=== PATIENT | female | born 1940 | race Caucasian/White ===

== ENCOUNTER 2023-11-11 14:22 | Inpatient (IN) | payer OTHER ==
--- NOTE | 2023-11-11 18:36 | RAD REPORT ---
EXAM DESCRIPTION: Joycelyn Single View11/11/2023 6:19 pm CLINICAL HISTORY: Chest pain COMPARISON: none FINDINGS: Mild to moderate bibasilar lung opacities Upper lobes appear clear. Heart is mildly enlarged IMPRESSION: Mild to moderate bibasilar lung opacities can be seen with aspiration pneumonitis
[2023-11-11] MEDS ORDERED: ONDANSETRON 4 MG (ODT) TAB PO PRN (18:38)
[2023-11-11] MEDS ORDERED: ACETAMINOPHEN 325 MG TABLET PO PRN (18:45)
[2023-11-11] MEDS ORDERED: NITROFURAN MACRO 100 MG CAP PO SCH (20:00)
[2023-11-11] MEDS ORDERED: AMOX/K CLAV 875 MG TAB PO SCH ×2 (20:00→23:58)
[2023-11-11] MEDS: LOSARTAN POTASSIUM 50 MG TABLET PO SCH (20:00)
[2023-11-11] MEDS: APIXABAN 5 MG TABLET PO SCH (20:25)
[2023-11-11] MEDS: DOCUSATE NA 100 MG CAP PO SCH (20:25)
[2023-11-12] MEDS: METOPROLOL XL 50 MG TAB PO SCH (05:10)
[2023-11-12 08:06] LABS: Absolute Lymphocytes (CBC) 0.7 K/uL (0.7-4.9); Hematocrit 35.8 % (36.0-45.0); Lymphocytes % 11.7 % (15.3-44.8); MCV 90.1 fL (80-100); MPV 8.3 fL (7.6-11.3); Platelets 256 thou/uL (152-406); RBC Red Blood Cell Count 3.97 M/uL (3.86-4.86)
[2023-11-12 08:53] LABS: Blood Morphology Comment NOT SEEN (NOT SEEN); Platelet Estimate ADEQ; White Blood Cell Scan OK (OK)
[2023-11-12 08:59] LABS: Magnesium 1.9 mg/dL (1.6-2.4); Potassium 3.8 mEq/L (3.5-5.1)
[2023-11-12] MEDS: AMOX/K CLAV 875 MG TAB PO SCH ×2 (09:30→20:03)
[2023-11-12] MEDS: APIXABAN 5 MG TABLET PO SCH ×2 (09:30→20:03)
[2023-11-12] MEDS: DOCUSATE NA 100 MG CAP PO SCH ×2 (09:30→20:03)
[2023-11-12] MEDS: NITROFURAN MACRO 100 MG CAP PO SCH ×2 (09:31→20:03)
[2023-11-12] MEDS: BISACODYL E.C. 5 MG TAB PO PRN (09:31)
[2023-11-12] MEDS: AMLODIPINE 5 MG TAB PO SCH (09:36)
[2023-11-12] MEDS: LOSARTAN POTASSIUM 50 MG TABLET PO SCH ×2 (09:36→20:03)
[2023-11-12] MEDS: SODIUM CHLORIDE 1 GM TAB PO SCH (17:17)
[2023-11-12 18:38] LABS: T3 Free 1.71 pg/mL (2.18-3.98); T4,Total 11.5 ug/dL (4.8-13.9); Thyroid Stimulating Hormone 1.66 uIU/mL (0.358-3.740)
--- NOTE | 2023-11-12 21:27 | HP ---
Date of Admission: 11/11/2023 Time Of Service: 1:00 p.m. Chief Complaint: She actually has decreased verbal expression and the daughter noted she fell and bl ed in her head. Her daughter is at the bedside. History Of Present Illness: Ms. Osman is an -auru-nss patient with history of atrial fibri llation, on Eliquis; hypertension with episodes of hyponatremia, was on salt replacement when on Dece mb, she apparently bent forward and fell and impacted her head. The daughter thought that the reconstruction of the event was that she hit the back of her head and had a Coupe contrecoup effect w here the bleeding was on the left frontal region. In the event, she had a large hematoma in the left frontal region. She was seen at [facility] and discharged to [facility] on October 14. However, on , while at [facility], she was found with vomitus on her chest, confuse d, hypoxic. She was brought to [facility] and transferred to [facility] where she was found to meet criteria for sepsis with elevated lactic acid, leukocytosis, an d fever. She was felt to have aspiration pneumonia as the etiology following the subarachnoid sort o f subdural hematoma, likely the etiology of her dysphagia leading to the pneumonia. She had a CT sca n showing the large hematoma with vasogenic edema, but this finding was stable. Chest x-ray showed b ilateral small pleural effusions and adjacent atelectasis. Urinalysis also positive for urinary trac t infection. In addition, she has hypokalemia, hyponatremia, hypocalcemia, hypomagnesemia. She had elevated troponins and EKG showing no acute ischemic changes. Hemoglobin was low to 7.2. INR elevat ed to 0.51. She received IV antibiotics along with IV fluids and sodium replacement. She had oxygen supplementation due to decreased oxygen saturation. Speech consult was done and the patient was put on advanced to a clear liquid regular diet. However, the patient's daughter is at bedside. Did sonia campos that she had aspirated once before and appeared to be choking while eating and patient was put o n a thick pureed diet with thickened liquids. In addition, since the subdural hematoma, the patient has not been able to void or have urine voluntarily. Has had some issues with stool production and s he has had a chronic Esteves put in place. She did have bladder training attempted and after 6 hours o f clamping, the patient did not feel the need to void and when the Esteves was opened, she had 2.2 L of urine. After another clamping within 30 minutes, another 600 cc was removed. It is likely the иван ent's frontal subdural hematoma on the left impacted and micturition center, making it difficult for her to receive the sensation of urination. Patient's Esteves will be kept in place. In addition, the patient's daughter was instructed to receive the most recent head CT scans on disk and bring them for a new CT to be done of the head for comparison to determine if the hematoma is stable or has changed . In addition, she needs hemoglobin and hematocrit followed white blood cell count followed. We randal l have thyroid panel, liver function panel, and basic metabolic panel followed. As a result of her s ignificant decline in functioning, she was evaluated by Physical and Occupational Therapy and it was determined that she needed moderate assistance for transfers and mobilization and performing activiti es of daily living and this is well below her normal level of functioning. Prior to October 20, she was fully independent and ambulating without any assistive device. She is therefore admitted to the inpatient rehabilitation unit for physical, occupational, speech therapy, and for management of her m ultiple comorbid conditions which do require close attending including the frontal subdural hematoma that needs to be re-evaluated. Past Medical History: As noted above including hypertension; atrial fibrillation, on Eliquis; chroni c hyponatremia. Daughter also notes that she has reported clots in the veins in the upper extremitie s returning to her heart and that is partly why she is on full anticoagulation with Eliquis. She als o notes that she was told that her mother's blood pressure should be kept around 140/90 to allow for perfusion given the partial blockages of the multiple vessels towards the CAD. X-ray/imaging: She had a chest x-ray on November 07 showing stable enlarged cardiomediastinal silh ouette, calcification in the aortic knob, persistent bilateral retrocardiac opacities. There was inc reased atelectatic changes in the right lower lung with possible superimposed consolidation and small bilateral pleural effusions. CT scan on November 06, 2023, showed no interval adverse change compar ed to an immediate prior noncontrast head CT scan. There is stable subacute hematoma in the left fro ntal lobe with surrounding vasogenic edema. There and is in the left frontal lobe. CT scan prior to the one read above showed the same finding. There was a slight decrease in the size of the central hyperdense component. The initial reading was 8 mm and ended with [address] scan on 11/06 show ed atelectasis bilateral lower lung zones with small pleural effusions. Allergies: NO KNOWN DRUG ALLERGIES. Current Medications: Tylenol 650 mg every 4 hours as needed, Norvasc 5 mg daily, Augmentin twice cecille ly, Eliquis 5 mg twice daily, Dulcolax 5 mg daily, Colace 100 mg twice daily, Cozaar 50 mg twice supriya y, Toprol-XL 50 mg daily, Macrobid 100 mg twice daily, Zofran 4 mg every 6 hours as needed, and sodiu m chloride tablets 1 g twice daily. Family History: Noncontributory. Review of Systems: Ms. Osman has some difficulty with expression, difficulty with articulation, mild diffuse weakness, a nd somnolence. She has no fevers or chills. No myalgias, arthralgias. She is unable to sense any f ullness of her bladder. She has no rash, no active psychiatric issues. She has stool retention as w ell. Current Level Of Functioning: Supervision for eating, oral hygiene; dependent for toilet hygiene; ma ximum assistance for bathing, upper body dressing and lower body dressing; maximum assistance for don silverio footwear; moderate assist for rolling right to left, [id number]; moderate assistance for sit- to-stand; and transferring from bed to chair to toilet all maximum assistance. Ambulation, she has n ot stood up and ambulated. It is noted that the daughter said she has had some issues moving the lef t leg and she has had a left hip fracture and has had intramedullary mesfin fixation and has had some is sues moving the left leg, which is a potential reason for falling. Rehabilitation And Medical Assessment And Plan: Ms. Osman is an 83-year-old patient in the [facility] emergency department unit with impairment category 02. Brain dysfunction, traumatic. Her impairment group code is 02.22 traumatic closed injury. Etiologic diagnosis is left frontal subdural hematoma. Additional co morbidities are the respiratory failure, atrial fibrillation, anemia, decreased mobility, decreased p hysical functions, dysphagia, dysarthria, hypertension, hyponatremia, hypoxia, pneumonia, sepsis, wea kness, cystitis, and she has had left hip pain. Please note on her examination, the left lower extre mity had some increased stiffness compared to the right with increased tone and she had mild difficul ty with plantar flexion, but she has poor hearing and the difficulty with comprehension and expressio n. Based on the location of her stroke, which may be contributing factors. Plan: 1.She will have physical, occupational, and speech therapy for 3.5 hours, 5/7 days. We will do thyr oid function study, TSH with T3, T4, and free T3, T4. Will have the sodium 1 g twice daily. We will continue with the antibiotics, Macrobid and Augmentin. We will continue Eliquis 5 mg twice daily fo r atrial fibrillation. Continue with Norvasc and Toprol with hold parameters of holding if systolic blood pressure is less than 140. We will give Dulcolax for stool retention and constipation. 2.We will keep the Esteves in place and she likely has central urinary retention from the location and size of her stroke. 3.We will repeat CT scan of her head to compare with CT scan from outside to determine if there is a change in the patient's subdural hematoma size and edema around the hematoma. 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 Speech will work with her with that. She has also high aspiration risk . She has poor guttural sounds and poor sounds made very back of the throat indicating some difficul ty with coordination, putting her at risk of pneumonia, which she already has had apparently multiple times. We will repeat chest x-ray to determine if there is any worsening pneumonia. Rehab Specific Plan: Ms. Osman has physical, occupational, and speech therapy for 3.5 hours, 5/7 day s to improve her speech, her cognition, her comprehension, her swallowing and protecting her airway. Her ability to mobilize from bed to chair to wheelchair ability to ambulate household distances, go up and down steps, to on and off the toilet, to perform a shower and dressing and all activities of d aily living. Ms. Osman and her family have a good understanding of the process of admission to the inpatient rehab ilitation facility and she and her family can appreciate the benefits of her therapy. Given her comp enrique medical condition and risk of further complications, rehabilitation cannot be safely or affective ly performed at a lower level facility such as intermediate. Barriers To Discharge: Currently, she has a significant hematoma and she is on Eliquis 5 mg twice da dagoberto because of the clots in the upper extremity veins. The patient may have repeat Doppler studies. She may need to be on this long-term and she could be at risk of worsening hemorrhage in the brain g iven the Eliquis and the bleeding that is already present. Length Of Stay: About 2 weeks. Disposition: Home with family. Prognosis: Fair. Rehab Goals: 1.Become independent with upper and lower body dressing, toileting, showering, donning and doffing s hoes. 2.Independently ambulate 250 feet with a rolling walker. 3.Independently propel a wheelchair 250 feet. 4.Independently go up and down 10 steps with bilateral handrails. 5.Independently perform cognitive function. 6.Independently protect her airway and advance diet regular with thin liquids. 7.The above goals were reviewed with the patient and her family and they are in agreement. By signing this document, I acknowledge I personally performed a full physical examination on Ms. Thomas er no later than 24 hours after her admission to the inpatient rehabilitation facility and determined that she is able to tolerate the above course of treatment at an intensive level for reasonable davon od of time. A detailed individualized plan of care for her will be completed by hospital day 4 based on the preadmission screen, history and physical, and therapy evaluations. JAYY Voice ID: [id number]
[2023-11-13] MEDS: METOPROLOL XL 50 MG TAB PO SCH (05:13)
[2023-11-13] MEDS: AMLODIPINE 5 MG TAB PO SCH (08:00)
[2023-11-13] MEDS: LOSARTAN POTASSIUM 50 MG TABLET PO SCH ×2 (08:00→19:30)
[2023-11-13] MEDS: APIXABAN 5 MG TABLET PO SCH ×2 (08:59→19:30)
[2023-11-13] MEDS: DOCUSATE NA 100 MG CAP PO SCH ×2 (08:59→19:29)
[2023-11-13] MEDS: NITROFURAN MACRO 100 MG CAP PO SCH ×2 (08:59→19:29)
[2023-11-13] MEDS: SODIUM CHLORIDE 1 GM TAB PO SCH ×2 (08:59→17:01)
[2023-11-13] MEDS: AMOX/K CLAV 875 MG TAB PO SCH ×2 (08:59→19:29)
[2023-11-13] MEDS: GUAIFENESIN 600 MG SA TAB PO SCH ×2 (11:32→19:29)
[2023-11-13] MEDS: ENSURE HIGH PROTEIN 237 ML CAN PO SCH (17:02)
[2023-11-13] MEDS ORDERED: ENSURE HIGH PROTEIN 237 ML CAN PO SCH (20:00)
[2023-11-14] MEDS: METOPROLOL XL 50 MG TAB PO SCH (05:21)
[2023-11-14] MEDS: LEVOTHYROXINE SOD 0.025 MG TAB PO SCH (05:21)
[2023-11-14] MEDS: ENSURE HIGH PROTEIN 237 ML CAN PO SCH ×2 (08:00→11:55)
[2023-11-14] MEDS: NITROFURAN MACRO 100 MG CAP PO SCH ×2 (08:19→20:24)
[2023-11-14] MEDS: APIXABAN 5 MG TABLET PO SCH ×2 (08:19→20:24)
[2023-11-14] MEDS: AMOX/K CLAV 875 MG TAB PO SCH ×2 (08:19→20:24)
[2023-11-14] MEDS: SODIUM CHLORIDE 1 GM TAB PO SCH ×2 (08:20→16:31)
[2023-11-14] MEDS: AMLODIPINE 5 MG TAB PO SCH (08:20)
[2023-11-14] MEDS: DOCUSATE NA 100 MG CAP PO SCH ×2 (08:20→20:24)
[2023-11-14] MEDS: LOSARTAN POTASSIUM 50 MG TABLET PO SCH ×2 (08:21→20:00)
[2023-11-14] MEDS: GUAIFENESIN 600 MG SA TAB PO SCH ×2 (08:21→20:24)
[2023-11-14 14:44] VITALS: BMI 20.3
[2023-11-14] MEDS: ENSURE ENLIVE 237 ML CAN PO SCH (20:24)
[2023-11-14] MEDS: JUVEN PACKET PO SCH (20:25)
--- NOTE | 2023-11-14 21:19 | PN ---
Date of Progress Note: 11/14/2023 Glak-js-ylly progress note visit. Time Of Service: 1:15 p.m. Subjective: Ms. Osman is resting comfortably in her room. Still has slow speech production from the significant left frontal subarachnoid traumatic hemorrhage. Otherwise, she denies any new complaint s on subjective. Objective: No fevers or chills. No nausea or vomiting. No significant myalgias, arthralgias, rash, psychiatric complaints or gastrointestinal complaints. Physical Examination: Vital Signs: Blood pressure 125/85, pulse ranged from 71-99, respiratory rate 16, temperature 97.3, and oxygen saturation 96%. General: Ms. Osman is resting comfortably. She has no obvious focal deficits despite her subarachno id hemorrhage. She does have difficulty with labial, lingual and guttural sounds and some decreased verbal fluency. Lungs: Good air movement. Abdomen: Soft. Extremities: No significant edema, cyanosis or clubbing. Laboratory Studies: White blood cell count 6.0, hemoglobin 11.9, platelets 256. Sodium 134, potassi um 3.8, chloride 97, BUN 21, calcium 9.2, prealbumin 18. She did have a slight decrease in free T3 a nd slightly elevated free T4. Medications: She is on Synthroid, now the smallest dose and that is 0.025 mg daily. Additional Medications: Tylenol 650 every 4 hours as needed for pain, Norvasc 5 mg daily for hyperte nsion, which may be held if her blood pressures are lower than 140. Eliquis 5 mg twice daily for DVT risk reduction and stroke risk reduction. Dulcolax 5 mg daily, Colace 100 mg twice daily, guaifenes in 600 mg twice daily, Sebastien 1 packet twice daily, Cozaar 50 mg twice daily, metoprolol 50 mg daily, Macrobid 100 mg twice daily, Zofran 4 mg every 6 hours as needed, sodium chloride 1 g twice daily. S he has preparation H for hemorrhoids. Progress Made With Physical Occupational And Speech Therapy: Patient completed ambulation with a [employer] walker covering 150 feet with contact guard assistance and another 75 feet with minimum assistan ce as she got tired. She propelled a wheelchair 100 feet twice with contact guard assistance. Stand and sit transfers done with minimum assistance. With occupational therapy, toileting with minimum a ssist, upper body dressing with supervision; lower body dressing, minimum assistance. Required minim um assistance with truncal upright position for supine to sit transfer. With speech therapy demonstr ated temporal orientation skills with 100% accuracy, but could not demonstrate spatial orientation sk ills. She named 3 items per concrete category with maximum verbal cues. She sustained attention for 1 minute. She had confabulation throughout the therapy session. Ms. Osman is making fair progress with her physical, occupational and speech therapy. Assessments And Plan: Ms. Osman is an 83-year-old patient in the rehabilitation unit with a large le ft frontal traumatic subdural hematoma. She has atrial fibrillation, decreased mobility, decreased p hysical functioning, anemia, hyponatremia, recent pneumonia, sepsis, cystitis. She is making fair ov erall progress with physical, occupational, and speech therapy. Plan: 1.Continue with physical, occupational and speech therapy for 3.5 hours, 5 out of 7 days. 2.Continue low-dose Synthroid. 3.1 g sodium twice daily. 4.Continue Macrobid and Augmentin for urinary tract infection. 5.Continue Eliquis 5 mg twice daily for stroke risk reduction due to atrial fibrillation. 6.Toprol and Norvasc for high blood pressure. Hold if systolic is less than 140. 7.Dulcolax with stool softeners. 8.She has urinary retention, likely centrally mediated and so Esteves will be kept in place. 9.CT scan will be done once the patient's daughter is able to obtain the most recent brain imaging f rom outside to be compared to a study done in-house. Comorbids That Continue To Impact Rehabilitation: Currently, the expressive aphasia with her stroke is making it somewhat difficult to communicate very effectively, but she is doing as good as possible . Comorbidities as noted included her having high risk of stroke and she is on Eliquis. Also, she h as a recent bleed, which while on Eliquis may worsen, so a CT scan of the head will be done again for comparison once the prior study is available and that is the imaging. JACKIE/JANETH Voice ID: [id number] Report ID: [id number]
[2023-11-15] MEDS: LEVOTHYROXINE SOD 0.025 MG TAB PO SCH (05:25)
[2023-11-15] MEDS: METOPROLOL XL 50 MG TAB PO SCH (05:25)
[2023-11-15] MEDS: NITROFURAN MACRO 100 MG CAP PO SCH ×2 (07:01→19:43)
[2023-11-15] MEDS: GUAIFENESIN 600 MG SA TAB PO SCH ×2 (07:01→19:43)
[2023-11-15] MEDS: DOCUSATE NA 100 MG CAP PO SCH ×2 (07:01→19:43)
[2023-11-15] MEDS: APIXABAN 5 MG TABLET PO SCH ×2 (07:01→19:43)
[2023-11-15] MEDS: SODIUM CHLORIDE 1 GM TAB PO SCH ×2 (07:01→17:34)
[2023-11-15] MEDS: LOSARTAN POTASSIUM 50 MG TABLET PO SCH ×3 (07:08→19:44)
[2023-11-15] MEDS: AMLODIPINE 5 MG TAB PO SCH ×2 (08:00→14:15)
[2023-11-15] MEDS: JUVEN PACKET PO SCH ×2 (08:29→19:43)
[2023-11-15] MEDS: ENSURE ENLIVE 237 ML CAN PO SCH ×2 (08:29→19:43)
[2023-11-15] MEDS: BISACODYL E.C. 5 MG TAB PO PRN (19:43)
[2023-11-15] MEDS: FORMULATION-R RECTAL 57GM PR PRN (19:44)
[2023-11-16 03:43] LABS: Absolute Lymphocytes (CBC) 0.8 K/uL (0.7-4.9); Hematocrit 31.3 % (36.0-45.0); MCV 90.8 fL (80-100); MPV 8.1 fL (7.6-11.3); Platelets 330 thou/uL (152-406); RBC Red Blood Cell Count 3.45 M/uL (3.86-4.86)
[2023-11-16 04:05] LABS: Albumin 2.8 g/dL (3.4-5.0); Magnesium 2.1 mg/dL (1.6-2.4); Potassium 4.7 mEq/L (3.5-5.1); Prealbumin 17.2 mg/dL (20-40)
[2023-11-16] MEDS: METOPROLOL XL 50 MG TAB PO SCH (04:17)
[2023-11-16 05:29] LABS: Blood Morphology Comment NOTED (NOT SEEN); Platelet Estimate ADEQ; Polychromasia 2+
[2023-11-16] MEDS: LEVOTHYROXINE SOD 0.025 MG TAB PO SCH (05:29)
[2023-11-16] MEDS: LOSARTAN POTASSIUM 50 MG TABLET PO SCH ×2 (08:00→19:54)
[2023-11-16] MEDS: AMLODIPINE 5 MG TAB PO SCH (08:00)
[2023-11-16] MEDS: GUAIFENESIN 600 MG SA TAB PO SCH ×2 (08:40→19:54)
[2023-11-16] MEDS: DOCUSATE NA 100 MG CAP PO SCH ×2 (08:40→19:54)
[2023-11-16] MEDS: PSYLLIUM 1 PKT PO SCH (08:40)
[2023-11-16] MEDS: SODIUM CHLORIDE 1 GM TAB PO SCH ×2 (08:40→17:16)
[2023-11-16] MEDS: NITROFURAN MACRO 100 MG CAP PO SCH ×2 (08:40→19:54)
[2023-11-16] MEDS: APIXABAN 5 MG TABLET PO SCH ×2 (08:41→19:54)
[2023-11-16] MEDS: ENSURE ENLIVE 237 ML CAN PO SCH ×2 (08:41→19:54)
[2023-11-16] MEDS: JUVEN PACKET PO SCH ×2 (08:41→19:54)
[2023-11-16] MEDS ORDERED: BISACODYL 10 MG RECTAL SUPP PR PRN (19:53)
[2023-11-16] MEDS: FORMULATION-R RECTAL 57GM PR PRN (19:54)
[2023-11-16] MEDS: BISACODYL E.C. 5 MG TAB PO PRN (19:54)
--- NOTE | 2023-11-16 22:43 | PN ---
Date of Progress Note: 11/16/2023 Time Of Service: 1:10 p.m. Subjective: Ms. Osman is sitting in the room waiting for the next therapy session. She is doing wel l. Her rate of speech production has improved. She denies any significant pain such as headache or pain in her neck or any other area after of course her fall with a subdural hematoma. Review of Systems: No fevers, chills, nausea, vomiting, myalgias, arthralgias, rash. No gastrointestinal issues. No ge nitourinary issues. Physical Examination: Vital Signs: Blood pressure 126/89, pulse up to 97, respiratory rate 17, temperature 97.4, oxygen sa turation 97%. General: Again, Ms. Osman is resting comfortably in a chair beside the bed. HEENT: She is normocephalic, atraumatic. Sclerae anicteric. Oropharynx pink, moist. Neck: Supple. Chest: Clear. Heart: Regular. Extremities: Show no significant clubbing, cyanosis, or edema. She despite her left frontal subdura l has no obvious focal deficits. Laboratory Studies: White blood cell count 6.6, hemoglobin 10.4, platelets 330. Sodium is down to 1 32, potassium 4.7, chloride 101, carbon dioxide 28, BUN 35, creatinine 0.64, glucose 99, calcium 8.6, magnesium 2.1, albumin 2.8, prealbumin 17.2. Note, we will adjust the sodium from 1 g twice daily t o 2 twice daily. Medications: Tylenol 650 mg twice daily, sodium chloride 2 g twice daily, Eliquis 5 mg twice daily, Norvasc 5 mg daily, Colace 100 mg twice daily, Ensure Enlive 237 mL twice daily, guaifenesin 600 mg t wice daily, Sebastien 1 packet twice daily, levothyroxine 0.025 mg daily, losartan 50 mg twice daily, met oprolol 50 mg daily, nitrofurantoin 100 mg twice daily, Zofran 4 mg every 6 hours as needed, Metamuci l 1 packet daily. X-ray/imaging: No new x-rays or imaging. Progress Made With Physical And Occupational Therapy: Today with physical therapy, she did multiple [id number]-eu-xomsw transfers with contact guard assistance. She ambulated feet twice and 75 fee t once with a rolling walker with contact guard assistance. She mobilized the wheelchair 250 feet, a nother 50 feet with verbal cues and supervision. With occupational therapy, completed [id number]-[id number]-ett with standby assistance, requiring extra time. Bathing, minimum assistance. Upper body dressing, se tup assistance. Lower body dressing, minimum assistance. Donning and doffing footwear, minimum assi stance. With speech therapy, she was 100% oriented to temporal concepts and 0% oriented to spatial c oncepts. Sustained attention was maintained for approximately 30 seconds. Organizational thinking skills were utilized to name convergently with an average of 2 of 5 items per concrete category. She exhibited empty speech for separation, confabulation and is easily distracte d. Ms. Osman is making much better progress with physical and occupational therapy and now with speech t herapy. She of course has a left frontal subdural hematoma, making it difficult for her to express h erself properly and able to be on target when she speaks. She is however still making progress with her physical therapy. Assessment: Ms. Osman is an 83-year-old patient in the rehabilitation unit with a left frontal traum atic subdural hematoma. She has atrial fibrillation. She is on anticoagulation for that of course _ bleeding and will have an interval CT scan once the patient's daughter is able to acquire t he recent imaging from [facility]. She has decreased physical functioning, decreased mobility, expressive aphasia, hyponatremia, pneumonia, sepsis, cystitis. Plan: 1.Continue with physical, occupational, and speech therapy for 3-1/2 hours, 5 out of 7 days. 2.Her multiple comorbid medications are as noted above and will be continued. 3.She will have a repeat CT scan without contrast once her most recent imaging is available. Comorbidities That Continue To Impact Rehabilitation: Currently, the aphasia because of the location of her stroke is her biggest issue. Physically, she is actually doing well with mobilization, transfers, and beginning to ambulate well. LB/MODL Voice ID: [id number] Report ID: [id number]
[2023-11-17] MEDS: METOPROLOL XL 50 MG TAB PO SCH (05:06)
[2023-11-17] MEDS: LEVOTHYROXINE SOD 0.025 MG TAB PO SCH (05:07)
[2023-11-17] MEDS: PSYLLIUM 1 PKT PO SCH (07:42)
[2023-11-17] MEDS: SODIUM CHLORIDE 1 GM TAB PO SCH ×2 (07:43→17:29)
[2023-11-17] MEDS: NITROFURAN MACRO 100 MG CAP PO SCH ×2 (07:43→19:33)
[2023-11-17] MEDS: DOCUSATE NA 100 MG CAP PO SCH ×2 (07:43→19:31)
[2023-11-17] MEDS: APIXABAN 5 MG TABLET PO SCH ×2 (07:43→19:32)
[2023-11-17] MEDS: GUAIFENESIN 600 MG SA TAB PO SCH ×2 (07:43→19:33)
[2023-11-17] MEDS: LOSARTAN POTASSIUM 50 MG TABLET PO SCH ×2 (07:44→19:32)
[2023-11-17] MEDS: AMLODIPINE 5 MG TAB PO SCH (08:00)
[2023-11-17] MEDS: JUVEN PACKET PO SCH ×2 (09:37→19:33)
[2023-11-17] MEDS: ENSURE ENLIVE 237 ML CAN PO SCH ×2 (09:37→19:32)
--- NOTE | 2023-11-17 13:21 | P.RH.PN ---
Estimated Length of Stay: 16 Expected Discharge Date: 11/26/23 Discharge Disposition Plan: Home Family Support: Yes Prison Goal: Mobility, Transfers, Self Care Vital Signs: Last Vital Signs Temp 96.6 F L 11/17/23 08:00 Pulse 54 11/17/23 08:00 Resp 12 11/17/23 08:00 BP 128/81 11/17/23 08:00 Pulse Ox 95 11/17/23 08:00 Laboratory: Laboratory Last Values WBC 6.60 thou/uL (4.3-10.9) 11/16/23 03:05 RBC 3.45 M/uL (3.86-4.86) L 11/16/23 03:05 Hgb 10.4 g/dL (12.0-15.0) L 11/16/23 03:05 Hct 31.3 % (36.0-45.0) L 11/16/23 03:05 MCV 90.8 fL (80-100) 11/16/23 03:05 MCH 30.3 pg (27.0-35.0) 11/16/23 03:05 MCHC 33.4 g/dL (32.0-36.0) 11/16/23 03:05 RDW 16.5 % (12.1-15.2) H 11/16/23 03:05 Plt Count 330 thou/uL (152-406) 11/16/23 03:05 MPV 8.1 fL (7.6-11.3) 11/16/23 03:05 Neutrophils % 74.4 % (41.7-73.7) H 11/16/23 03:05 Lymphocytes % 12.0 % (15.3-44.8) L 11/16/23 03:05 Monocytes % 11.2 % (3.3-12.3) 11/16/23 03:05 Eosinophils % 1.9 % (0-4.4) 11/16/23 03:05 Basophils % 0.5 % (0-1.3) 11/16/23 03:05 Absolute Neutrophils 4.9 K/uL (1.8-8.0) 11/16/23 03:05 Segmented Neutrophils 71 % (40-80) 11/16/23 03:05 Band Neutrophils 4 % (0-1) H 11/16/23 03:05 Absolute Lymphocytes 0.8 K/uL (0.7-4.9) 11/16/23 03:05 Lymphocytes 12 % (15-42) L 11/16/23 03:05 Monocytes 10 % (0-10) 11/16/23 03:05 Absolute Monocytes 0.7 K/uL (0.1-1.3) 11/16/23 03:05 Eosinophils 1 % (0-3) 11/16/23 03:05 Absolute Eosinophils 0.1 K/uL (0-0.5) 11/16/23 03:05 Absolute Basophils 0.0 K/uL (0-0.5) 11/16/23 03:05 Reactive Lymphocytes 2 % 11/16/23 03:05 Platelet Estimate Adeq 11/16/23 03:05 Polychromasia 2+ 11/16/23 03:05 Morphology Comment Noted (NOT SEEN) 11/16/23 03:05 Sodium 132 mEq/L (136-145) L 11/16/23 03:05 Potassium 4.7 mEq/L (3.5-5.1) 11/16/23 03:05 Chloride 101 mEq/L (98-107) 11/16/23 03:05 Carbon Dioxide 28 mEq/L (21-32) 11/16/23 03:05 Anion Gap 7.7 mEq/L (5.0-15.0) 11/16/23 03:05 BUN 35 mg/dL (7-18) H 11/16/23 03:05 Creatinine 0.64 mg/dL (0.55-1.02) 11/16/23 03:05 Est GFR (CKD-EPI) 88 ml/min (=/>90) L 11/16/23 03:05 Glucose 99 mg/dL (74-106) 11/16/23 03:05 Calcium 8.6 mg/dL (8.5-10.1) 11/16/23 03:05 Magnesium 2.1 mg/dL (1.6-2.4) 11/16/23 03:05 Albumin 2.8 g/dL (3.4-5.0) L 11/16/23 03:05 Prealbumin 17.2 mg/dL (20-40) L 11/16/23 03:05 TSH 1.660 uIU/mL (0.358-3.740) 12/31/23 17:22 Free T4 1.47 ng/dL (0.76-1.46) H 11/12/23 17:22 Thyroxine (T4) 11.5 ug/dL (4.8-13.9) 11/12/23 17:22 Free T3 pg/mL 1.71 pg/mL (2.18-3.98) L 11/12/23 17:22 Total T3 0.80 ng/mL (0.80-2.00) 11/12/23 17:22 SARS-CoV-2 Rap RNA(RT-PCR) Negative (NEGATIVE) 11/11/23 16:45 Smear Scan Ok (OK) 11/12/23 07:37 Weight: 130 lb Wound Present: Yes Closed Surgical Incision Present: No Negative Pressure Wound Therapy Present: No Physician Update: Labs reviewed and are stable. She is making good progress overall with therapy. However, she is still mild to moderately cognitivele impaired and would require 24/ supervision. SLUMS 7, BIMS 11. CGA for bed mobility, min assistance for transfers. RW 125' with CGA, WC 250', toilet transfers min assistance. Summary: Patient's care plan and director long term care goals have been reviewed and revised as necessary. Please see the Rehabilitation Signature page for all necessary signatures.
--- NOTE | 2023-11-17 16:04 | RAD REPORT ---
EXAM DESCRIPTION: CT - Head Brain Wo Cont - 11/17/2023 3:28 pm CLINICAL HISTORY: Alteration of awareness/confusion COMPARISON: None TECHNIQUE: Computed axial tomography of the head was obtained. IV contrast was not requested. All CT scans are performed using dose optimization technique as appropriate and may include automated exposure control or mA/KV adjustment according to patient size. FINDINGS: 3.2 x 4 x 2.6 centimeter (craniocaudal by AP by trans) bleed left frontal lobe. On the ewelina or exam it measured 3.8 x 4.8 x 3.2 centimeters. There is less surrounding edema. Shift of the midlin e structures is not present. Some compression left frontal horn lateral ventricle. No hydrocephalus No extra-axial fluid collection is noted. Fluid within the sinuses/ mastoids is not seen. IMPRESSION: 3.2 x 4 x 2.6 centimeters subacute left frontal lobe bleed has decreased in size. There is less mass effect and no shift of the midline structures
[2023-11-17] MEDS: BISACODYL E.C. 5 MG TAB PO PRN (19:34)
[2023-11-18] MEDS: LEVOTHYROXINE SOD 0.025 MG TAB PO SCH ×2 (05:22→06:30)
[2023-11-18] MEDS: METOPROLOL XL 50 MG TAB PO SCH ×2 (05:23→05:49)
[2023-11-18] MEDS: AMLODIPINE 5 MG TAB PO SCH (08:00)
[2023-11-18] MEDS: LOSARTAN POTASSIUM 50 MG TABLET PO SCH ×2 (08:00→19:40)
[2023-11-18] MEDS: APIXABAN 5 MG TABLET PO SCH ×2 (08:12→19:40)
[2023-11-18] MEDS: PSYLLIUM 1 PKT PO SCH (08:12)
[2023-11-18] MEDS: GUAIFENESIN 600 MG SA TAB PO SCH ×2 (08:12→19:40)
[2023-11-18] MEDS: SODIUM CHLORIDE 1 GM TAB PO SCH ×2 (08:12→17:18)
[2023-11-18] MEDS: NITROFURAN MACRO 100 MG CAP PO SCH (08:12)
[2023-11-18] MEDS: DOCUSATE NA 100 MG CAP PO SCH ×2 (08:12→19:40)
[2023-11-18] MEDS: JUVEN PACKET PO SCH ×2 (09:42→19:40)
[2023-11-18] MEDS: ENSURE ENLIVE 237 ML CAN PO SCH ×2 (09:42→17:18)
[2023-11-19] MEDS: METOPROLOL XL 50 MG TAB PO SCH (04:53)
[2023-11-19] MEDS: LEVOTHYROXINE SOD 0.025 MG TAB PO SCH (05:35)
[2023-11-19] MEDS: LOSARTAN POTASSIUM 50 MG TABLET PO SCH ×2 (08:00→20:03)
[2023-11-19] MEDS: AMLODIPINE 5 MG TAB PO SCH (08:00)
[2023-11-19] MEDS: PSYLLIUM 1 PKT PO SCH (08:10)
[2023-11-19] MEDS: GUAIFENESIN 600 MG SA TAB PO SCH ×2 (08:10→20:03)
[2023-11-19] MEDS: DOCUSATE NA 100 MG CAP PO SCH ×2 (08:10→20:03)
[2023-11-19] MEDS: SODIUM CHLORIDE 1 GM TAB PO SCH ×2 (08:10→16:30)
[2023-11-19] MEDS: APIXABAN 5 MG TABLET PO SCH ×2 (08:10→20:03)
[2023-11-19] MEDS: ENSURE ENLIVE 237 ML CAN PO SCH ×3 (08:25→16:31)
[2023-11-19] MEDS: JUVEN PACKET PO SCH ×2 (11:25→20:03)
[2023-11-19] MEDS: NYSTATIN 500,000 UNIT/5 ML UDC PO SCH (20:05)
[2023-11-19 20:28] LABS: Specific Gravity 1.015 (1.005-1.030); Urine Bacteria <20 /HPF (<20); Urine Bilirubin NEGATIVE (Negative); Urine Blood 1+ (Negative); Urine Clarity Clear (Clear); Urine Color Light-Yellow (Yellow); Urine Glucose NEGATIVE (Negative); Urine Mucus Slight /HPF (None Seen); Urine Protein NEGATIVE (Negative); Urine RBC 21-50 /HPF (None Seen); Urine Urobilinogen Normal (Normal); Urine pH 5.5 (5.0-7.0)
[2023-11-20] MEDS: METOPROLOL XL 50 MG TAB PO SCH (05:05)
[2023-11-20] MEDS: LEVOTHYROXINE SOD 0.025 MG TAB PO SCH (05:23)
[2023-11-20] MEDS: LOSARTAN POTASSIUM 50 MG TABLET PO SCH ×2 (08:00→19:51)
[2023-11-20] MEDS: AMLODIPINE 5 MG TAB PO SCH (08:00)
[2023-11-20] MEDS: PSYLLIUM 1 PKT PO SCH (08:41)
[2023-11-20] MEDS: DOCUSATE NA 100 MG CAP PO SCH ×2 (08:41→19:51)
[2023-11-20] MEDS: GUAIFENESIN 600 MG SA TAB PO SCH ×2 (08:42→19:51)
[2023-11-20] MEDS: SODIUM CHLORIDE 1 GM TAB PO SCH ×2 (08:44→16:31)
[2023-11-20] MEDS: APIXABAN 5 MG TABLET PO SCH ×2 (08:44→19:51)
[2023-11-20] MEDS: JUVEN PACKET PO SCH ×2 (09:15→19:53)
[2023-11-20] MEDS: ENSURE ENLIVE 237 ML CAN PO SCH ×3 (09:15→16:31)
[2023-11-20] MEDS: NYSTATIN 500,000 UNIT/5 ML UDC PO SCH ×3 (10:22→19:53)
[2023-11-20] MEDS: TAMSULOSIN 0.4 MG SR CAP PO SCH (19:53)
--- NOTE | 2023-11-20 22:52 | PN ---
Date of Progress Note: 11/20/2023 Time Of Service: 1:10 p.m. Subjective: Ms. Osman is ambulating around the unit, doing very well with a rolling walker. She has good archie and stride length and physical therapist has a gait belt and chair in the tool. She jaffe s no complaints. Review of Systems: No fevers, chills, nausea, vomiting, myalgias, arthralgias, rash, headache, weight change. Physical Examination: Vital Signs: Blood pressure 135/72, pulse 76, respiratory rate 18, temperature 97.4, O2 saturation 9 9%. General: Ms. Osman is ambulating around the unit and she has no focal deficits. Chest: Clear. Heart: Regular. Extremities: Show no clubbing, cyanosis, or edema. Laboratory Studies: Blood work that is repeated on the showed sodium of 132, slightly decreased from 134 on , her BUN increased from 21 to 35, consistent with mild dehydration. Prealbumin decr eased from 18 to 17.2. Her thyroid function was already mentioned with TSH normal at 1.66 and free T 3 slightly low at 1.71. X-ray/imaging: Note on the , she had a head CT scan which was compared to the CT scan done outsid e of the hospital prior to her being admitted to the rehabilitation unit. That study identified the left frontal lobe subdural hematoma, 3.8 x 4.8 x 3.2 cm in the craniocaudal by anterior-posterior by transverse directions. The repeat scan showed decrease in those dimensions to 3.24 and 2.6. This wa s discussed at length with the patient's daughter and the patient. Medications: Her medications have been reviewed and remained unchanged. Progress Made With Physical And Occupational Therapy: Today with physical therapy, ckxgym-iu-eld tra nsfers done independently, stand pivot transfers with a rolling walker also independently. She ambul ated 325 feet, 225 feet, and 300 feet twice with standby assistance using a rolling walker. She asce nded and descended 15 steps with standby assistance using bilateral handrails. She is independent wh ile eating breakfast, contact guard assistance for 11 minutes while standing at the sink taking care of her allusions. With speech therapy, temporal orientation with 100% accuracy. Spatial orientation with 50% accuracy. She recalled 3 of 3 unrelated pictures after 3 minutes independently. Divergent naming completed by 5 concrete category members with 100% accuracy and minimum assistance. Ms. Osman is making excellent progress with her physical, occupational, and speech therapy, though mo st challenged by spatial orientation and memory for spatial location. Assessment: Ms. Osman is an 83-year-old patient in the rehabilitation unit with a traumatic left fro ntal subdural hematoma that is resolving by interval scan. She has atrial fibrillation on full-dose anticoagulation and mild anemia, malnutrition, mild hydration. Plan: 1.Continue with physical, occupational, and speech therapy. 2.Ensure Enlive, Hemocyte Plus, and Sebastien for anemia and malnutrition. 3.Guaifenesin for cough. 4.Eliquis 5 mg twice daily for stroke and DVT risk reduction. Continue Norvasc for hypertension. S he has hyponatremia and is now on sodium chloride 2 g twice daily. She has Flomax now started 0.4 mg at bedtime. Since the left frontal traumatic subdural hematoma, she had urinary retention, likely c entrally mediated. Given the reduction in size of a mass in the left frontal lobe, she will resume b ladder training along with the Flomax nightly. Comorbidities That Continue To Impact Rehabilitation: She has had urinary retention since the subdur al hematoma and bladder training will resume. She has Flomax on board. Otherwise, she does have mil d anemia, mild malnutrition, and she has to be very cautious as she ambulates because if there is a fall given the Eliquis, she is at risk of additional injury and bleed ing and fractures. JACKIE/JANETH Voice ID: [id number] Report ID: [id number]
[2023-11-21] MEDS: LEVOTHYROXINE SOD 0.025 MG TAB PO SCH (05:44)
[2023-11-21] MEDS: METOPROLOL XL 50 MG TAB PO SCH (05:44)
[2023-11-21] MEDS: LOSARTAN POTASSIUM 50 MG TABLET PO SCH ×2 (08:00→20:03)
[2023-11-21] MEDS: AMLODIPINE 5 MG TAB PO SCH (08:00)
[2023-11-21] MEDS: FERROUS SULFATE 325 MG TAB PO SCH (08:12)
[2023-11-21] MEDS: APIXABAN 5 MG TABLET PO SCH ×2 (08:12→20:03)
[2023-11-21] MEDS: FE SULF/FA/VIT B COMP & C TAB PO SCH (08:12)
[2023-11-21] MEDS: SODIUM CHLORIDE 1 GM TAB PO SCH ×2 (08:12→17:23)
[2023-11-21] MEDS: PSYLLIUM 1 PKT PO SCH (08:13)
[2023-11-21] MEDS: ENSURE ENLIVE 237 ML CAN PO SCH ×3 (08:13→17:46)
[2023-11-21] MEDS: DOCUSATE NA 100 MG CAP PO SCH ×2 (08:13→20:03)
[2023-11-21] MEDS: GUAIFENESIN 600 MG SA TAB PO SCH ×2 (08:13→20:03)
[2023-11-21] MEDS: NYSTATIN 500,000 UNIT/5 ML UDC PO SCH ×3 (08:13→20:03)
[2023-11-21] MEDS: JUVEN PACKET PO SCH ×2 (09:53→20:03)
[2023-11-21] MEDS: TAMSULOSIN 0.4 MG SR CAP PO SCH (20:03)
[2023-11-22] MEDS: METOPROLOL XL 50 MG TAB PO SCH (05:13)
[2023-11-22] MEDS: LEVOTHYROXINE SOD 0.025 MG TAB PO SCH (05:35)
[2023-11-22] MEDS: JUVEN PACKET PO SCH ×2 (08:00→20:35)
[2023-11-22] MEDS: ENSURE ENLIVE 237 ML CAN PO SCH ×3 (08:00→16:52)
[2023-11-22] MEDS: AMLODIPINE 5 MG TAB PO SCH (08:00)
[2023-11-22] MEDS: FERROUS SULFATE 325 MG TAB PO SCH (08:29)
[2023-11-22] MEDS: GUAIFENESIN 600 MG SA TAB PO SCH ×2 (08:29→20:34)
[2023-11-22] MEDS: APIXABAN 5 MG TABLET PO SCH ×2 (08:30→20:35)
[2023-11-22] MEDS: PSYLLIUM 1 PKT PO SCH (08:30)
[2023-11-22] MEDS: DOCUSATE NA 100 MG CAP PO SCH ×2 (08:30→20:34)
[2023-11-22] MEDS: LOSARTAN POTASSIUM 50 MG TABLET PO SCH ×2 (08:30→20:34)
[2023-11-22] MEDS: FE SULF/FA/VIT B COMP & C TAB PO SCH (08:30)
[2023-11-22] MEDS: SODIUM CHLORIDE 1 GM TAB PO SCH ×2 (08:30→16:53)
[2023-11-22] MEDS: NYSTATIN 500,000 UNIT/5 ML UDC PO SCH ×3 (09:00→20:34)
--- NOTE | 2023-11-22 20:19 | PN ---
Date of Progress Note: 11/22/2023 Time Of Service: 1:10 p.m. Subjective: Ms. Osman is sitting in the room, looking outside the window. She is very happy with he r therapy so far and has no new complaints, and is able to have a more clear mind. Review of Systems: No fevers, chills, nausea, vomiting, myalgias, arthralgias, rash. No psychiatric issues. Physical Examination: Vital Signs: Blood pressure 138/70, pulse of 62, respiratory rate 16, temperature 97.5, oxygen satur ation 97%. General: Ms. Osman is resting comfortably in the chair. HEENT: She is normocephalic, atraumatic. Sclerae anicteric. Oropharynx pink and moist. Neck: Supple. Chest: Clear. Heart: Regular. Extremities: Show no clubbing, cyanosis, or edema. Laboratory Studies: No new laboratory studies. X-ray/imaging: No new x-rays or imaging. Medications: Her medications have been reviewed. She is on ferrous sulfate 325 mg daily, added on . Otherwise, all medications are continued as previous. Progress Made With Physical And Occupational Therapy: Today, with physical therapy, she was able to ambulate with a rolling walker 250 feet twice, another 750 feet once, another 550 feet once, all done independently. She ascended and descended 15 steps with bilateral handrails, all independently. Si t-to-stand transfers done independently. Stand pivot transfers done independently. Regarding occupa tional therapy, she has made great progress. Supervision for lower body dressing due to impaired con ditions of sequencing. Independent for upper body dressing and footwear. Supervision for sit-to-sta nd. Regarding speech therapy, she uses adaptive reasoning to exclude numbers of a category with 70% accuracy. She did 4-step sequence events with 60% accuracy. Ms. Osman is making excellent progress with her physical and occupational therapy, slightly slower pr ogress in her speech therapy, but nonetheless making good progress. Assessment: Ms. Osman is an 83-year-old patient in the rehabilitation unit with a traumatic left fro ntal subdural hematoma, which is improving per CT scan interval change. Atrial fibrillation, full-do se anticoagulation. She has malnutrition, mild dehydration, anemia, hyponatremia, and urinary retent ion possibly related to the location of her stroke. She said that she is not able to sense any abili ty to void despite multiple urine trials, where she has been able to have 1000 and 1850 cc removed fr om the Esteves without her being aware with clamping and bladder training. In addition, another 2700 c c and she has no sensation that she needs to urinate. Plan: 1.Continue physical, occupational, and speech therapy for 3.5 hours, 5 of 7 days. 2.Medications continued to address the comorbid conditions, including the Flomax, sodium chloride ta blets, Ensure Enlive, HemocytePlus, Cozaar, Topamax, Synthroid, ferrous sulfate, Eliquis, Norvasc, an d Tylenol. Comorbidities That Continue To Impact Rehabilitation: Currently, the urinary issue, which at this po int she has no sensation that she needs to urinate after the Esteves is clamped. She will potentially have to go home with the Esteves catheter and follow up with the urologist and may have to have a supra pubic catheter placed, but she will work on having a urologist followup closer to where she lives, [facility] is in [facility]. JACKIE/JANETH Voice ID: [id number] Report ID: [id number]
[2023-11-22] MEDS: TAMSULOSIN 0.4 MG SR CAP PO SCH (20:34)
[2023-11-23] MEDS: METOPROLOL XL 50 MG TAB PO SCH (04:45)
[2023-11-23] MEDS: LEVOTHYROXINE SOD 0.025 MG TAB PO SCH (05:15)
[2023-11-23 06:46] LABS: Absolute Lymphocytes (CBC) 0.6 K/uL (0.7-4.9); Hematocrit 32.9 % (36.0-45.0); Lymphocytes % 17.2 % (15.3-44.8); MCV 92.2 fL (80-100); MPV 8.2 fL (7.6-11.3); Platelets 386 thou/uL (152-406); RBC Red Blood Cell Count 3.57 M/uL (3.86-4.86)
[2023-11-23 07:06] LABS: Albumin 2.9 g/dL (3.4-5.0); Magnesium 1.9 mg/dL (1.6-2.4); Potassium 4.3 mEq/L (3.5-5.1); Prealbumin 19.7 mg/dL (20-40)
[2023-11-23] MEDS: PSYLLIUM 1 PKT PO SCH (07:52)
[2023-11-23] MEDS: APIXABAN 5 MG TABLET PO SCH ×2 (07:52→20:29)
[2023-11-23] MEDS: CRANBERRY FRUIT EXTRACT 200 MG CAP PO SCH ×2 (07:52→20:29)
[2023-11-23] MEDS: DOCUSATE NA 100 MG CAP PO SCH ×2 (07:52→20:29)
[2023-11-23] MEDS: FERROUS SULFATE 325 MG TAB PO SCH (07:52)
[2023-11-23] MEDS: GUAIFENESIN 600 MG SA TAB PO SCH ×2 (07:53→20:29)
[2023-11-23] MEDS: FE SULF/FA/VIT B COMP & C TAB PO SCH (07:53)
[2023-11-23] MEDS: NYSTATIN 500,000 UNIT/5 ML UDC PO SCH ×2 (07:53→14:00)
[2023-11-23] MEDS: SODIUM CHLORIDE 1 GM TAB PO SCH ×2 (07:53→17:30)
[2023-11-23] MEDS: LOSARTAN POTASSIUM 50 MG TABLET PO SCH ×2 (08:00→20:29)
[2023-11-23] MEDS: AMLODIPINE 5 MG TAB PO SCH (08:00)
[2023-11-23] MEDS: ENSURE ENLIVE 237 ML CAN PO SCH ×3 (08:35→17:30)
[2023-11-23] MEDS: JUVEN PACKET PO SCH ×2 (08:35→20:30)
[2023-11-23 09:49] LABS: Blood Morphology Comment NOT SEEN (NOT SEEN); Platelet Estimate ADEQ; White Blood Cell Scan OK (OK)
[2023-11-23] MEDS ORDERED: METOPROLOL XL 50 MG TAB PO SCH (13:19)
[2023-11-23] MEDS: TAMSULOSIN 0.4 MG SR CAP PO SCH (20:30)
--- NOTE | 2023-11-23 22:16 | PN ---
Date of Progress Note: 11/23/2023 Time Of Service: 1:15 p.m. Subjective: Ms. Osman is doing well. She has no complaints. She is happy so far with therapy and i s ready for discharge tomorrow. Review of Systems: No fevers, chills, nausea, vomiting. No myalgias, arthralgias. No rash. No psychiatric complaints. Physical Examination: Vital Signs: Blood pressure 138/70, pulse 64, respiratory rate 16, temperature 97.3, oxygen saturati on 97%. General: Dawson is sitting in a chair beside bed. HEENT: She is normocephalic, atraumatic. Sclerae anicteric. Oropharynx pink, moist. Neck: Supple. Chest: Clear. Heart: Regular. Neuro: She has overall no focal neurological deficits. She has improved verbal fluency. Laboratory Studies: White blood cell count 3.4, hemoglobin 11, platelets 386. Sodium 135, potassium 4.3, chloride 103, carbon dioxide 28, BUN 25, creatinine 0.61, glucose 90. Prealbumin 19.7, albumin 2.9. X-ray/imaging: No new x-rays or imaging. She will have a CT scan done in the morning without contra st. Medications: Her medications have been reviewed and remain unchanged. Progress Made With Physical And Occupational Therapy: Today, with physical therapy she ambulated 750 feet independently using a rolling walker. She was able to go and down 15 steps independently with bilateral handrails. Self propelled a wheelchair 500 feet independently. Stand pivot transfers done independently. Car transfer stimulated and done independently. With occupational therapy, bladder training was done. Early in the day, she appeared to have some sensation and the catheter was remove d. The patient did have some voiding. She also had later in the afternoon sensation of voiding, bet ter voiding around 200 cc. She does have a Flomax now 0.8 mg daily. She was able to use the toilet and as noted was independent with her hygiene. She does have the scheduled Urology followup. Her kalyn belle has made that when she is discharged. Regarding speech, reassessed today and her BIMS score i mproved from 11 to 13, SLUMS score from a 7-29, which is now normal. However, it was recommended, sh e continue with speech therapy, physical and occupational therapy to continue improving. Ms. Osman again is doing very well with her physical, occupational, and speech therapy and is ready f or discharge. Assessment: Ms. Osman is an 83-year-old patient in rehabilitation unit with a left frontal traumatic subdural hematoma for which she is recovering very well. She has atrial fibrillation on anticoagula tion, malnutrition, dehydration, hypernatremia, urinary retention, hypothyroidism, hypertension. Plan: 1.Continue physical, occupational, and speech therapy for 3.5 hours, 5/7 days. 2.Her comorbid conditions, which are outlined are managed by continuing her current medications. 3.She will have a CT scan of her head without contrast and compared to interval CT scan to document expected decrease in hematoma size. Again, Esteves catheter now out and she is working on sensing urin ation for her to independently void. It may be that she requires a Esteves to go home and the leg bag will be applied prior to going home with family teaching to help her with that. Comorbidities That Continue To Impact Rehabilitation: Currently, the urinary retention is one of the bigger issues and again as noted above, she will continue with bladder training for now and may have a leg Esteves bag in place for to go home and she will follow up with Urology. JACKIE/JANETH Voice ID: [id number] Report ID: [id number]
[2023-11-24] MEDS: LEVOTHYROXINE SOD 0.025 MG TAB PO SCH (05:16)
[2023-11-24] MEDS: TAMSULOSIN 0.4 MG SR CAP PO SCH (07:45)
[2023-11-24] MEDS: PSYLLIUM 1 PKT PO SCH ×2 (07:45→08:00)
[2023-11-24] MEDS: CRANBERRY FRUIT EXTRACT 200 MG CAP PO SCH (07:45)
[2023-11-24] MEDS: APIXABAN 5 MG TABLET PO SCH (07:45)
[2023-11-24] MEDS: FE SULF/FA/VIT B COMP & C TAB PO SCH (07:46)
[2023-11-24] MEDS: SODIUM CHLORIDE 1 GM TAB PO SCH (07:46)
[2023-11-24] MEDS: FERROUS SULFATE 325 MG TAB PO SCH (07:46)
[2023-11-24] MEDS: DOCUSATE NA 100 MG CAP PO SCH (07:46)
[2023-11-24] MEDS: GUAIFENESIN 600 MG SA TAB PO SCH (07:46)
[2023-11-24] MEDS: LOSARTAN POTASSIUM 50 MG TABLET PO SCH (08:00)
[2023-11-24] MEDS: AMLODIPINE 5 MG TAB PO SCH (08:00)
[2023-11-24] MEDS: ENSURE ENLIVE 237 ML CAN PO SCH ×2 (08:15→13:32)
--- NOTE | 2023-11-24 08:31 | RAD REPORT ---
EXAM DESCRIPTION: CT - Head Brain Wo Cont - 11/24/2023 8:09 am CLINICAL HISTORY: progress of resolution of subdural hematoma COMPARISON: Head Brain Wo Cont dated 11/17/2023 TECHNIQUE: All CT scans are performed using dose optimization technique as appropriate and may inclu de automated exposure control or mA/KV adjustment according to patient size. FINDINGS: 4 x 2.4 cm evolving intraparenchymal hemorrhage in the left frontal lobe not significantly changed since 11/17/2023.Adjacent white matter hypoattenuation is unchanged. Slight [id number] mi dline shiftNo areas of brain edema or evidence of midline shift. The paranasal sinuses and mastoids are clear. The calvarium is intact. IMPRESSION: Evolving left frontal lobe intraparenchymal hemorrhage with similar size and slight left -to-right midline shift. .
[2023-11-24 09:04] VITALS: TEMP 97.7
[2023-11-24 09:46] VITALS: BP 110/63
[2023-11-24] MEDS: JUVEN PACKET PO SCH (11:27)
--- NOTE | 2023-12-03 22:44 | DS ---
Date of Discharge: 11/24/2023 Discharge Diagnoses: Traumatic left frontal subdural hematoma, respiratory failure, atrial fibrillat ion, anemia, decreased mobility, decreased physical functioning, dysphagia, dysarthria, hypertension, hyponatremia, hypoxemia, pneumonia, sepsis, left hip pain. Discharge Condition: Despite her medical conditions, discharge condition is good. Activity: Weightbearing as tolerated. Diet: Regular. Followup: Neurologist as scheduled. Primary care physician as scheduled. Allergies: NO KNOWN DRUG ALLERGIES. Medications: Flomax 0.4 mg twice daily, sodium chloride 2 g twice daily, psyllium 1 packet daily, To prol-XL 50 mg daily, Cozaar 50 mg twice daily, levothyroxine 25 mcg daily, Sebastien 1 packet twice daily , ferrous sulfate 325 mg daily, Ensure Enlive 237 mL daily, Colace 100 mg twice daily, cranberry frui t extract 200 mg twice daily, Eliquis 5 mg twice daily, Norvasc 5 mg daily, Tylenol 650 mg every 4 ho urs as needed. Laboratory Studies: White blood cell count 3.4, hemoglobin 11, platelets 386. Sodium 135, potassium 4.3, chloride 103, carbon dioxide 28, BUN 25, creatinine 0.61. Prealbumin 19.7, albumin 2.9, magnes ium 1.9, calcium 9.1. Glucose 90. Total T3 0.80, free T3 1.71, T4 11.5, free T4 1.47, and TSH 1.66. Urinalysis unremarkable except red blood cells were 21 to 50 and glucose 1+. COVID-19 test was neg ative on 11/11/2023. X-ray/imaging: Repeat head CT scan done on 11/24/2023, prior to her discharge, did show the hematoma in the left frontal region, was 4 x 2.4 cm. There was an evolving intraparenchymal hemorrhage in th e left frontal lobe, not significantly different from 11/17/2023. There was adjacent white matter hy poattenuation unchanged, slight left to right shift, and no areas of brain edema or evidence of other barrera midline shift. Synopsis Of Events That Led To Admission: Ms. Osman is an 83-year-old patient with multiple medical problems as noted above, who fell on the back of her head and had a coup contrecoup effect, where the re was bleeding in the left frontal region. She had a large hematoma in that region. She was seen a t [facility], discharged to [facility] on November 03. However, on , , while at [facility], she was found to be in her own vomitus with confusion, hypoxia. Brought to [facility] and transferred to [facility], where she was found to meet criteria for sepsis with elevated lactic acid, leukocytosis, and fever. Also, she was felt to have an aspiration pneumonia as etiology. She did have a CT scan showing a large hematoma as noted w ith vasogenic edema; however, it was noted to be stable. Chest x-ray showed bilateral pleural effusi ons and adjacent atelectasis. Urinalysis was positive for urinary tract infection. Hemoglobin was l ow at 7.1. INR 0.51. She received IV antibiotics, fluid, and sodium replacement for hyponatremia, a lso oxygenation via nasal cannula. She had speech therapy and found to be able to advance to clear l iquid diet; however, the patient's daughter at bedside did not allow that and she was actually found to be choking while eating. She was then changed to soft mechanical diet. She did have significant difficulty with urinary retention, could not sense urination. She had a Esteves placed and when it was tamped, she actually had 2.2 L of urine removed and did not sense that. She was put on bladder pao silverio. As a result of her complicated condition and need for physical, occupational, and speech thera py, she was admitted to the hospital for physical, occupational, and speech therapy as noted. Throughout hospitalization, she was followed for her hemoglobin and hematocrit, and for her risk of i nfection that was addressed. She had negative findings in terms of her temperature being unremarkabl e and normotensive. Laboratory studies: She did have no elevation of her white blood cell count. S he was unable to really sense urination with multiple attempts, and she was discharged home with a le g bag for urine and to follow up with her urologist and also follow up with Neurology as she was gett ing to clear and has done very well with her physical, occupational, and speech therapy. Progress Made With Physical, Occupational, And Speech Therapy: By her discharge, with physical thera py, she was doing bed mobility with good tolerance. Rolling walker, she ambulated 750 feet, within f unctional limits x15 steps with excellent tolerance. Wheelchair mobilization over 500 feet. She met all of her long-term and short-term goals and durable medical equipment needs were met as she was di scharged. With occupational therapy, independent for showering, tub and shower transfer, eating, evette oming, upper and lower body dressing, donning and doffing of footwear, all independent. She was disc harged home to continue with therapy on the outpatient basis. In terms of her speech, independent wi th cognition, memory, comprehension, expression, and intelligibility. She did improve her SLUMS scor e to a 29/30 and BIMS score 13/15, indicating no significant cognitive issues. Allergies: NO KNOWN DRUG ALLERGIES. Followup: With Neurology and primary care physician as scheduled. JACKIE/JANETH Voice ID: [id number] Report ID: [id number]
== END 2023-11-24 13:30 | disposition home health service (06) | DRG 949 ==
LOC: 5TH 16:00
PROVIDERS: ADMIT Psychiatry & Neurology Neurology with Special Qualifications in Child Neurology; ATTEND Psychiatry & Neurology Neurology with Special Qualifications in Child Neurology
DX: S06.5XAD Traumatic subdural hemorrhage with loss of consciousness status unknown, subsequent encounter (principal); E46 Unspecified protein-calorie malnutrition; E87.1 Hypo-osmolality and hyponatremia; N39.0 Urinary tract infection, site not specified; E86.0 Dehydration; I48.91 Unspecified atrial fibrillation; I10 Essential (primary) hypertension; D64.9 Anemia, unspecified; R13.10 Dysphagia, unspecified; R47.1 Dysarthria and anarthria; R33.8 Other retention of urine; Z79.01 Long term (current) use of anticoagulants; Z68.20 Body mass index [BMI] 20.0-20.9, adult; Z11.52 Encounter for screening for COVID-19
CPT/HCPCS: 36415; 70450; 71045; 80048; 81001; 82040; 83735; 84134; 84436; 84439; 84443; 84480; 84481; 85025; 87077; 87086; 87088; 87186; 87635; 92523; 92526; 97110; 97116; 97129; 97163; 97165; 97530; 97542; Q9967

== ENCOUNTER 2024-01-22 10:22 | Inpatient (IN) | payer OTHER ==
[2024-01-22] MEDS ORDERED: ACETAMINOPHEN 500 MG TAB PO PRN (18:49)
[2024-01-22 18:51] VITALS: BMI 19.7
[2024-01-22] MEDS ORDERED: cloNIDine HCL 0.1 MG TAB PO PRN (19:40)
[2024-01-22] MEDS ORDERED: MELATONIN 3 MG TABLET PO PRN (19:53)
[2024-01-22] MEDS ORDERED: APIXABAN 5 MG TABLET PO SCH (20:00)
[2024-01-22] MEDS: DOCUSATE NA 100 MG CAP PO SCH (20:54)
[2024-01-22] MEDS: TAMSULOSIN 0.4 MG SR CAP PO SCH (20:54)
[2024-01-22] MEDS: METOPROLOL XL 50 MG TAB PO SCH (20:54)
[2024-01-23 03:55] LABS: Absolute Basophils 0.1 K/uL (0-0.5); Absolute Eosinophils 0.2 K/uL (0-0.5); Absolute Lymphocytes (CBC) 0.8 K/uL (0.7-4.9); Absolute Monocytes 0.9 K/uL (0.1-1.3); Absolute Neutrophil 4.1 K/uL (1.8-8.0); Basophils % 0.9 % (0-1.3); Eosinophils % 3.1 % (0-4.4); Hemoglobin 11.9 g/dL (12.0-15.0); Lymphocytes % 13.1 % (15.3-44.8); MCH 29.4 pg (27.0-35.0); MCHC 34.1 g/dL (32.0-36.0); MCV 86.2 fL (80-100); MPV 8.6 fL (7.6-11.3); Monocytes % 15.4 % (3.3-12.3); Neutrophils % 67.5 % (41.7-73.7); Platelets 215 thou/uL (152-406); RBC Red Blood Cell Count 4.06 M/uL (3.86-4.86); Red Cell Distribution Width 14.9 % (12.1-15.2)
[2024-01-23 04:27] LABS: Albumin 2.6 g/dL (3.4-5.0); Anion Gap 11.1 mEq/L (5.0-15.0); Potassium 4.1 mEq/L (3.5-5.1); Prealbumin 13.3 mg/dL (20-40)
[2024-01-23] MEDS: LEVOTHYROXINE SOD 0.025 MG TAB PO SCH (06:56)
[2024-01-23] MEDS ORDERED: ASPIRIN EC 81 MG TAB PO SCH (08:00)
[2024-01-23] MEDS ORDERED: METOPROLOL XL 50 MG TAB PO SCH (08:00)
[2024-01-23] MEDS ORDERED: SODIUM CHLORIDE 1 GM TAB PO SCH (08:00)
[2024-01-23] MEDS: CRANBERRY FRUIT EXTRACT 200 MG CAP PO SCH (08:15)
[2024-01-23] MEDS: PSYLLIUM 1 PKT PO SCH (08:15)
[2024-01-23] MEDS: ASCORBIC ACID 500 MG TABLET PO SCH (08:15)
[2024-01-23] MEDS: SODIUM CHLORIDE 1 GM TAB PO SCH (08:16)
[2024-01-23] MEDS: ASPIRIN EC 81 MG TAB PO SCH (08:16)
[2024-01-23] MEDS: FERROUS SULFATE 325 MG TAB PO SCH (08:16)
[2024-01-23] MEDS: levoFLOXacin 500 MG TAB PO SCH (08:17)
[2024-01-23] MEDS: ENSURE ENLIVE 237 ML CAN PO SCH (08:18)
[2024-01-23] MEDS: METOPROLOL XL 50 MG TAB PO SCH (19:33)
--- NOTE | 2024-01-23 21:10 | HP ---
Date of Admission: 01/22/2024 Time Of Service: 1:00 p.m. Chief Complaint: Went home and had a bladder infection and got weak. History Of Present Illness: Ms. Osman is an 83-year-old patient with history of hypertension, atrial fibrillation, recurrent urinary tract infections, chronic indwelling Esteves catheter, anemia, subarac hnoid hemorrhage, and bilateral internal jugular deep vein thrombosis, who was seen at [facility] for rehabilitation and discharged last year. She was at home with her and independent when she developed symptoms of urinary tract infection and was admitted to [facility]. She was discharged from there on 01/16 after receiving treatment for complicated urinary tract in fection with Levaquin based on culture and sensitivities. She again went home, but became weak, had low blood pressures, more confusion with failure to thrive. Her daughter brought her back to [facility] on January 18 and she was admitted. Head CT scan showed no acute findings. MRI of the brain showed the left frontal subacute to chronic hematoma and bilaterally thickened pachymening es most compatible with intracranial hypotension. A magnetic resonance venogram was negative for sin us thrombosis. CT scan of the chest was ordered as troponins were mildly elevated and her D-dimer is also elevated that was done to rule out pulmonary embolus, but the patient after initially agreeing, changed her mind and the study was not done. She had bilateral upper and lower extremity ultrasound s given the history of the deep vein thrombosis as noted above and those were negative. While hospit alized, she had issues of hyponatremia, which has actually been ongoing. She had had replacement abo ut 1 g twice daily sodium replacement that was increased to twice daily after she had a hyponatremia down to 127. Also, she received IV fluids. Due to poor oral intake, Nutrition was consulted to adju st patient's diet. She also had labile hypertension along with atrial fibrillation requiring metopro lol. She did again have urinary tract infection requiring Levaquin. Her decrease in mobility, trans fers, physical functioning, required physical and occupational therapy. 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 She was evaluated and medically cleared to begin aggressive inpatient rehabilitatio n with careful management of her comorbid conditions. As a result, she is admitted to the inpatient rehabilitation unit for physical, occupational, and speech therapy given her chronic and other issues . As noted, atrial fibrillation, hypertension. She was on Eliquis, which is held. Now, she is just on aspirin because of the subdural hematoma on October 20. In addition, she has constipation, hypoth yroidism, urinary retention, malnutrition, mild anemia. Allergies: SHRIMP, STRAWBERRIES, TOMATOES, IODINE. Current Medications: Tylenol Extra Strength 500 mg every 6 hours as needed, vitamin C 500 mg daily, aspirin 81 mg daily, clonidine 0.1 mg every 4 hours for systolic blood pressure greater than 170, Col joyce 100 mg twice daily, ferrous sulfate 325 mg daily, Levaquin 500 mg daily, Synthroid 0.025 mg daily , melatonin 3 mg at bedtime, Toprol-XL 50 mg twice daily, Ensure Enlive 237 mL up to 4 times daily, M etamucil 1 packet daily, sodium chloride 2 g twice daily, Flomax 0.4 mg daily. Family History: Noncontributory. Social History: The patient lives at home with . Daughter is very much involved in her care and has been present since she made daily trips to see her mom and has had very little sleep and at t his point she may be able to get some rest as mom is now being seen in the unit and taken care of. N o alcohol, tobacco, or IV drug use. Review of Systems: She does report constantly repeated urinary tract infections, some mild disorientation, but that has cleared up significantly. Very subtle weakness on the right upper extremity compared to the left and some decrease in sensation in the right compared to the left side. Otherwise, she denies any fevers or chills, any significant myalgias, arthralgias. No rash. No psychiatric issues. No gastrointest inal complaints. No other positives such as dermatological complaints. Current Level Of Functioning: Eating is at setup assistance. Oral hygiene, supervision. Toileting, supervision. Showering, supervision. Upper body dressing, supervision. Lower body dressing, super vision. Rolling zbhpl-op-fmmg, xivw-wz-zfzwj all supervision. Oxg-an-qugrm, supervision. Ambulatin g with a rolling walker and supervision covering 120 feet. Stairs, moderate assistance, 1 step cover ed. Physical Examination: Vital Signs: Blood pressure 119/64, pulse 77, respiratory rate 16, temperature 98.1, oxygen saturati on 96%. General: Ms. Osman is again resting comfortably. Daughter is at the bedside. She is in no signific ant distress. HEENT: She is normocephalic, atraumatic. Sclerae anicteric. Oropharynx pink and moist. Neck: Supple. Heart: Irregularly irregular. Abdomen: Soft. Extremities: Show no clubbing, cyanosis, or edema. Neurologic: Right upper extremity around 4/5 strength proximally and distally. Left side 5/5. Lowe r extremities, no weakness appreciated bilaterally. Sensory exam, mild decreased touch temperature o n the right compared to the left. Upper extremity, coordination intact. Gait slow and steady with m ild loss of balance. Symmetric reflexes. Laboratory Studies: White blood cell count 6.0, hemoglobin 11.9, hematocrit 35.0, neutrophils 67.5. Sodium 135, potassium 4.1, chloride 101, carbon dioxide 27, BUN 20, creatinine 0.67, glucose 95, alexei cium 8.9. Magnesium 2.0. Albumin 2.6, prealbumin 13.3. X-ray/imaging: CT scan of the brain without contrast and actually MRI also early January showed the le ft frontal intraaxial subacute to chronic hematoma cavity with mild vasogenic edema. There is no mid line shift or herniation. There is bilateral thickening of the pachymeninges most compatible with in tracranial hypotension. Chronic followup is recommended. There is also chronic microvascular ischem ic disease and no signs of venous sinus thrombosis. Assessment: Ms. Osman is an 83-year-old patient in the rehabilitation unit with impairment category 03, brain dysfunction nontraumatic. Her impairment group code is 02.1 nontraumatic. Etiologic diagn osis bilateral thickened pachymeninges. Her comorbidities are atrial fibrillation, decreased mobilit y, decreased physical functioning, hyponatremia, urinary tract infection, urinary retention, diffuse weakness, and coordination of gait in addition to anemia and moderate malnutrition. Plan: She will have physical, occupational, and speech therapy for 3.5 hours, 5/7 days. We will con tinue Flomax for the urinary retention. Continue sodium chloride tablets for hyponatremia. Continue Metamucil for constipation, Ensure Enlive for malnutrition, Toprol-XL for atrial fibrillation, gertrudis onin for insomnia, Synthroid for hypothyroidism, Levaquin for urinary tract infection, ferrous sulfat e for her low iron count, the clonidine as needed for blood pressure management, Tylenol for pain. 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 She will have SCDs. Mobilizatio n also encouraged and moderate amount of water intake to minimize the risk of worsening hyponatremia. Further, her other comorbid conditions will be monitored for any potential adjustments, say blood p ressure control, for urinary tract is showing signs of more infection and she has constipation or ins omnia. Rehab Specific Plan: Ms. Osman will have physical, occupational, and speech therapy for 3.5 hours, 5 /7 days to improve her ability to transfer from bed to chair, to shower, to toilet, for her to be abl e to ambulate at least 250 feet with modified independence, up and down 10 steps with modified indepe ndence. Propel a wheelchair 250 feet with modified independence. She will also have detention 24 hours a day, 7 days a week. She will have social service evaluation and management for discharge planning and durable medical equipment. She will have daily physician evaluation for adjusting medi cations and blood work ordering and addressing all other intubated issues. If need be, additional he lp from the infectious disease service may be called on. Given her risk of complications and her med ical conditions, rehabilitation cannot be safely or effectively performed at the lower level facility such as detention. Barriers To Discharge: Currently, is a risk of bleeding and the risk of ischemic stroke. Those will be balanced by adjusting for DVT prophylaxis with SCDs and the holding anticoagulation for now. It is recommended that the patient may have a Watchman procedure. Length Of Stay: About 10 days. Disposition: Home with family and follow up with Home Health. Prognosis: Good. Rehab Specific Goals: 1.Become independent with upper and lower body dressing, toileting, showering, and donning and doffi ng shoes. 2.Independently ambulate 250 feet with a rolling walker. 3.Independently propel a wheelchair 250 feet. 4.Independently go up and down 10 steps with bilateral handrails. 5.Independently perform cognitive functioning including safety awareness, medication management, all followups. 6.The above goals were reviewed with Ms. Osman and daughter and they are in agreement. By signing this document, I acknowledge I performed a full physical examination on Ms. Osman no later than 24 hours after her admission to the inpatient rehabilitation facility and determined that she i s able to tolerate the above course of treatment at an intensive level for a reasonable period of preston e. A detailed individualized plan of care for her will be completed by hospital day 4 based on the p re-admission screen history and physical, and therapy evaluations. JAYY Voice ID: [id number]
[2024-01-24] MEDS: levoFLOXacin 250 MG TAB PO ONE (12:15)
--- NOTE | 2024-01-24 21:22 | PN ---
Date of Progress Note: 01/24/2024 Time Of Service: 1:15 p.m. Subjective: Ms. Osman is ambulating around the unit. She is in happy mood, very jovial. She has no significant complaints in terms of coordination issues, balance, and gait. She is doing well. Review of Systems: No fevers, chills. No significant myalgias, arthralgias, rash. No headache, weight change. Physical Examination: Vital Signs: Blood pressure 130/64, pulse 78, respiratory rate 16, temperature 97, oxygen saturation 94%. General: Earlier this afternoon, she had orthostatic blood pressures while lying 124/60, pulse 55, w hile sitting 178/85, pulse 65, and while standing blood pressure 113/66, pulse of 79. She was asympt omatic. HEENT: She is normocephalic, atraumatic. Sclerae anicteric. Oropharynx moist. Neck: Supple. Chest: Clear. Heart: Regular. Extremities: No significant edema, cyanosis, or clubbing. Laboratory Studies: White blood cell count 6.0, hemoglobin 11.9, platelets 215. Sodium 135, potassi um 4.1, chloride 101, carbon dioxide 27, BUN 20, creatinine 0.67, glucose 95, calcium 8.9, magnesium 2.0, prealbumin 13.3, and albumin 2.6. X-ray/imaging: No new x-rays or imaging. Medications: Extra-strength Tylenol 500 mg every 6 hours as needed, vitamin C 500 mg daily, aspirin 81 mg daily, clonidine 0.1 mg for systolic blood pressure greater than 170 every 4 hours and as neede d, Colace 100 mg twice daily, ferrous sulfate 325 mg daily, levofloxacin 750 mg daily, Synthroid 0.02 5 mg daily, melatonin 3 mg at bedtime, Toprol-XL 50 mg twice daily, Ensure Enlive 237 mL 4 times supriya y, Metamucil 1 packet daily, sodium chloride 2 g twice daily, Flomax 0.4 mg twice daily. Progress Made With Physical, Occupational, And Speech Therapy: Today with physical therapy, she perf ormed mzuqls-yc-hyl transfers with standby assistance. Sge-ik-wncqv transfers with standby assistanc e. She ambulated with a rolling walker 200 feet with standby assistance. Also without an assistive device, she ambulated 500 feet twice and 125 feet once with contact guard assistance. Mobilized a wh eelchair 250 feet independently. She climbed up and down 15 steps with bilateral handrails with aneta dby assistance. With occupational therapy, she did bilateral lower extremity leg presses to improve strength and endurance and in toes without significant difficulty. With speech, she used verbal rehe arsal to recall 2 of 3 words after 3 minutes and 3 of 3 after an additional 3 minutes. She continued to recall the words after 7 minutes. She used organizational thinking during a convergent task for abstract concepts with 50% accuracy without cues. Ms. Osman is making great progress with physical, occupational, and speech therapy. Assessment: Ms. Osman is an 83-year-old patient in the rehabilitation unit with bilaterally thickene d pachymeninges, atrial fibrillation, decreased mobility, decreased physical functioning, hyponatremi a, urinary tract infection, urinary retention, moderate malnutrition, subdural hematoma that is chron ic at this point. Plan: 1.She will continue physical, occupational, and speech therapy for 3.5 hours, 5 of 7 days. 2.Her comorbid conditions which are listed are managed by continuing her medications. At this point , no changes were made. She may however have antihypertensive medications held if systolic blood pre ssure is less than 120 and dosages may be decreased depending on how well she is doing. Comorbidities That Are Continuing To Impact Rehabilitation: At this point, blood pressures are very well managed, but they will also continue to be managed. She does have a significant risk of stroke given she did have intracerebral hemorrhage and she is just on aspirin with SCDs, but she is mobilizi ng very well and she if need be will have EKG, may have again rate control to be addressed by beta-blockers and calcium channel blockers. LB/MODL Voice ID: [id number] Report ID: [id number]
[2024-01-25 05:13] LABS: Absolute Eosinophils 0.3 K/uL (0-0.5); Absolute Lymphocytes (CBC) 0.7 K/uL (0.7-4.9); Absolute Monocytes 0.9 K/uL (0.1-1.3); Absolute Neutrophil 2.3 K/uL (1.8-8.0); Eosinophils % 6.9 % (0-4.4); Hematocrit 33.6 % (36.0-45.0); Hemoglobin 11.5 g/dL (12.0-15.0); Lymphocytes % 16.6 % (15.3-44.8); MCH 29.7 pg (27.0-35.0); MCHC 34.3 g/dL (32.0-36.0); MCV 86.5 fL (80-100); MPV 8.1 fL (7.6-11.3); Monocytes % 21.2 % (3.3-12.3); Neutrophils % 54.3 % (41.7-73.7); Nucleated Red Blood Cells % 0.1 % (0-0); Platelets 228 thou/uL (152-406); RBC Red Blood Cell Count 3.88 M/uL (3.86-4.86); Red Cell Distribution Width 14.8 % (12.1-15.2)
[2024-01-25 05:34] LABS: Albumin 2.5 g/dL (3.4-5.0); Anion Gap 7.3 mEq/L (5.0-15.0); Magnesium 2.1 mg/dL (1.6-2.4); Potassium 4.3 mEq/L (3.5-5.1); Prealbumin 11.8 mg/dL (20-40)
[2024-01-25] MEDS: levoFLOXacin 750 MG TAB PO SCH (08:01)
[2024-01-25 08:39] LABS: Atypical Lymphocytes 1 %; Blood Morphology Comment NOT SEEN (NOT SEEN); Differential Total Cells Count 100; Eosinophils 9 % (0-3); Lymphocytes 19 % (15-42); Monocytes 18 % (0-10); Platelet Estimate ADEQ; Segmented Neutrophils 50 % (40-80)
--- NOTE | 2024-01-26 13:35 | P.RH.PN ---
Estimated Length of Stay: 12 Expected Discharge Date: 01/25/24 Discharge Disposition Plan: Home Family Support: Yes Assisted Goal: Mobility, Transfers, Self Care Vital Signs: Last Vital Signs Temp 97.2 F 01/26/24 06:40 Pulse 68 01/26/24 07:11 Resp 17 01/26/24 06:40 BP 141/67 H 01/26/24 07:11 Pulse Ox 94 01/26/24 06:40 Laboratory: Laboratory Last Values WBC 4.20 thou/uL (4.3-10.9) L 01/25/24 04:52 RBC 3.88 M/uL (3.86-4.86) 01/25/24 04:52 Hgb 11.5 g/dL (12.0-15.0) L 01/25/24 04:52 Hct 33.6 % (36.0-45.0) L 01/25/24 04:52 MCV 86.5 fL (80-100) 01/25/24 04:52 MCH 29.7 pg (27.0-35.0) 01/25/24 04:52 MCHC 34.3 g/dL (32.0-36.0) 01/25/24 04:52 RDW 14.8 % (12.1-15.2) 01/25/24 04:52 Plt Count 228 thou/uL (152-406) 01/25/24 04:52 MPV 8.1 fL (7.6-11.3) 01/25/24 04:52 Neutrophils % 54.3 % (41.7-73.7) 01/25/24 04:52 Lymphocytes % 16.6 % (15.3-44.8) 01/25/24 04:52 Monocytes % 21.2 % (3.3-12.3) H 01/25/24 04:52 Eosinophils % 6.9 % (0-4.4) H 01/25/24 04:52 Basophils % 1.0 % (0-1.3) 01/25/24 04:52 Absolute Neutrophils 2.3 K/uL (1.8-8.0) 01/25/24 04:52 Segmented Neutrophils 50 % (40-80) 01/25/24 04:52 Absolute Lymphocytes 0.7 K/uL (0.7-4.9) 01/25/24 04:52 Lymphocytes 19 % (15-42) 01/25/24 04:52 Monocytes 18 % (0-10) H 01/25/24 04:52 Absolute Monocytes 0.9 K/uL (0.1-1.3) 01/25/24 04:52 Eosinophils 9 % (0-3) H 01/25/24 04:52 Absolute Eosinophils 0.3 K/uL (0-0.5) 01/25/24 04:52 Basophils 2 % (0-1) H 01/25/24 04:52 Absolute Basophils 0.0 K/uL (0-0.5) 01/25/24 04:52 Atypical Lymphocytes 1 % 01/25/24 04:52 Platelet Estimate Adeq 01/25/24 04:52 Morphology Comment Not seen (NOT SEEN) 01/25/24 04:52 Sodium 135 mEq/L (136-145) L 01/25/24 04:52 Potassium 4.3 mEq/L (3.5-5.1) 01/25/24 04:52 Chloride 101 mEq/L (98-107) 01/25/24 04:52 Carbon Dioxide 31 mEq/L (21-32) 01/25/24 04:52 Anion Gap 7.3 mEq/L (5.0-15.0) 01/25/24 04:52 BUN 25 mg/dL (7-18) H 01/25/24 04:52 Creatinine 0.67 mg/dL (0.55-1.02) 01/25/24 04:52 Est GFR (CKD-EPI) 87 ml/min (=/>90) L 01/25/24 04:52 Glucose 96 mg/dL (74-106) 01/25/24 04:52 Calcium 9.0 mg/dL (8.5-10.1) 01/25/24 04:52 Magnesium 2.1 mg/dL (1.6-2.4) 01/25/24 04:52 Albumin 2.5 g/dL (3.4-5.0) L 01/25/24 04:52 Prealbumin 11.8 mg/dL (20-40) L 01/25/24 04:52 Weight: 125 lb 14.143 oz Wound Present: No Negative Pressure Wound Therapy Present: No Physician Update: Labs were reviewed and are stable. BIMS 12, indwelling cath in place. SLUMS 24. Mastering concrete issues well. Independent with walker, SBA 750' without AD, up and down 15 steps. Min assistance with dynamic standing balance. 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 Please see the Rehabilitation Signature page for all necessary signatures.
--- NOTE | 2024-01-28 20:49 | PN ---
Date of Progress Note: 01/28/2024 Time Of Service: 2:30 p.m. Subjective: Ms. Osman is sitting in a chair in her room. Her son-in-law at bedside. She is very jaffe ppy with her therapy. She is recovering very well. She has no new complaints. Review of Systems: No fevers, chills, nausea, vomiting, myalgias, arthralgias, rash. No psychiatric issues. No other i ssues or complaints. Physical Examination: Vital Signs: Blood pressure 152/72, pulse 52, respiratory rate 12, temperature 98.4, oxygen saturati on 97%. She did have orthostatics, while lying blood pressure 152/72, pulse 52, while sitting blood pressure 141/85, pulse 53, and while standing 112/64, pulse 64. She was asymptomatic. Otherwise in terms of her deficits, she is doing very well despite the findings of the imaging and her resolving b leed. She is doing very well in terms of no obvious focal deficits. Some mild incoordination and de ficits, stable now. Medications: Medications have been reviewed. Imaging: There are no imaging studies. Laboratory Studies: Laboratory studies have been reviewed and are stable. Progress Made With Physical And Occupational Therapy: Today, she ambulated 1250 feet and another 500 feet 4 times independently. She was able to go up and down 20 steps with standby assistance using 1 sided handrail. With her occupational therapy, she uses a 2-pound dowel mesfin and yellow band for str ength training. Ms. Osman is making excellent progress with physical and occupational therapy exceeding all of her go als, short-term, long-term, and is doing great shape, now ready for discharge next week. Ms. Osman is an 83-year-old patient admitted to the rehabilitation unit with bilaterally thickened pa chymeninges, atrial fibrillation, decreased mobility, decreased physical functioning, hyponatremia, u rinary tract infection, a subdural hematoma that is resolving. Plan: 1.Continue with physical, occupational, and speech therapy for 3.5 hours, 5 of 7 days. 2.Continue with all comorbid condition medications which have been reviewed and are noted above. Faizan corona is going to be ready for discharge in the morning. She also has chronic urinary retention and the patient's daughter is very worried that if the bladder training is done at this point, may result in a urinary tract infection. She is scheduled to follow up with Urology and I will be done after her d ischarge. Comorbidities That Are Impacting Rehabilitation: As noted, her chronic urinary retention has been a challenge and it will be addressed after discharge with Urology. Otherwise, everything else is very well managed. JACKIE/JANETH Voice ID: [id number] Report ID: [id number]
--- NOTE | 2024-01-29 19:46 | PN ---
Date of Progress Note: 01/29/2024 Time Of Service: 1:15 p.m. Subjective: Ms. Osman is in the room. Her daughter at bedside. She is doing very well. She has no complaints. She is very happy with her therapy, doing everything above what is asked of her. Review of Systems: She denies any fevers, chills, nausea, vomiting, myalgias, arthralgias, rash, headache, weight change . No psychiatric issues. No other positives on her systems review. Physical Examination: Vital Signs: Blood pressure range 135 to 150 over 66 to 74, pulse range 56 to 68, again respiratory rate is 16 to 18, temperature 97.6. Orthostatics were negative. General: Ms. Osman is sitting in a chair in between therapy sessions. HEENT: She is normocephalic, atraumatic. Sclerae anicteric. Oropharynx pink and moist. Neck: Supple. Chest: Clear. Heart: Regular. Extremities: Show no significant cyanosis or edema. Neurological: She has despite the findings on the brain scan, no obvious focal neurological deficits currently. Laboratory Studies: No new laboratory studies. X-ray/imaging: No new x-rays or imaging. Medications: Medications have been reviewed and remained unchanged. In terms of her blood work, she has not had any significant abnormalities except mild anemia, 11.5 hemoglobin. White blood cell cou nt slightly low at 4.2. Her sodium remain slightly low at 135. BUN slightly elevated to 25, creatin ine normal at 0.67. Prealbumin remains slightly low at 11.8 with albumin low at 2.5. It is noted th at she does have protein supplementation that will be increased to 4 times daily from 3 times daily a nd high protein drink. She also has ferrous sulfate for iron supplementation to increase red blood c ell formation and we will begin vitamin B12 sublingual. Progress Made With Physical, Occupational, And Speech Therapy: Today with physical therapy, she ambu lated 1250 feet independently with a rolling walker and another 1000 feet without an assistive device with standby assistance. She was able to ambulate another 750 feet twice without an assistive devic e with contact guard assistance on even surfaces. She was able to ascend and descend 25 steps using bilateral handrails independently. She did multiple [id number]-yp-[id number] transfers independently, supine-to- sit transfers done independently. With her occupational therapy, she demonstrated fall recovery tech tracey using a couch for support with verbal cues and demonstrated understanding and did very well. With speech, she sequenced 4 items with 80% accuracy and moderate assistance. Organizational thinking skills used for abstract concepts with 75% accuracy and moderate assistance. Three of 3 unrelated words were recalled after 5 minutes without cues. Ms. Osman is making excellent progress with physical, occupational, and speech therapy and should be ready to be discharged home. Her daughter will be assisting her as the patient does have her also who is much involved with her care. Assessment: Ms. Osman is an 83-year-old patient in the rehabilitation unit with bilateral thickened pachymeninges, atrial fibrillation, decreased mobility, decreased physical function, hyponatremia, re solving subdural hematoma, urinary tract infection, and urinary retention with chronic urinary cathet er in place. The urinary catheter is replaced every 2 weeks. Plan: 1.Continue with physical, occupational, and speech therapy for 3.5 hours, 5 of 7 days. 2.For her malnutrition, increase her high-protein 3 to 4 times daily. 3.She will continue with Hemocyte plus, ferrous sulfate, and vitamin B12 for increasing red blood ce ll production. 4.Hydration is adjusted carefully as she has slightly elevated BUN. She has her pain well managed a nd no other active issues destructing or interrupting her therapy. She will be following up with Uro logy after discharge. Comorbidities That Are Impacting Her Rehabilitation: Placement of the chronic Esteves catheter is mild ly and her ability to ambulate, but as noted above, she is doing excellent in terms of great distance s, up and down steps, mobilizing wheelchair, and doing very well with her walker. LB/MODL Voice ID: [id number] Report ID: [id number]
--- NOTE | 2024-01-31 20:13 | PN ---
Date of Progress Note: 01/31/2024 Time Of Service: 1:15 p.m. Subjective: Ms. Osman is in the room looking out of the window. She is in very good mood, doing exc ellent with all of her therapy. She has no new complaints. Review of Systems: No fevers, chills, nausea, vomiting, myalgias, arthralgias, rash, headache, psychiatric issues. Physical Examination: Vital Signs: Blood pressure 141/71, pulse of 60, respiratory rate 15, temperature 96.8, oxygen satur ation 95%. General: Again, Ms. Osman is resting comfortably in her chair. She has no complaints. No focal fin dings despite her history of bleed and her bilateral thickened pachymeninges. Neuro: Cranial nerves intact. Motor symmetric in upper and lower extremities. Sensation intact in upper and lower extremities. Abdomen: Abdominal sounds . Chest: Clear. Laboratory Studies: No new laboratory studies. X-ray/imaging: No new x-rays or imaging. Medications: Medications have been reviewed and are unchanged. Progress Made With Physical, Occupational, And Speech Therapy: Today with physical therapy, she did [id number] transfers independently, room to shower independently. She was independent with groomin g, bathing, upper and lower body dressing, donning and doffing of footwear. She did have supervision required for lower body dressing. Due to her risk of falling, performed all ADLs very well. Did re quire some verbal cues on the catheter bag which she has an external catheter for urine du e to chronic urinary retention. With speech, BIMS score improved from 12 to 15, SLUMS score improved from 24 to 26, but she still has some difficulty with abstract thinking and reasoning. With physica l therapy, [id number] transfers independently. She ambulated 1500 feet independently with a rolli ng walker and another 1250 feet and then another 1000 feet without an assistive device and standby as sistance. She ascended and descended 35 steps with bilateral handrails independently. Ms. Osman is making excellent progress with physical and occupational therapy, ready for discharge ho de. She will continue with outpatient physical therapy. Assessment: Ms. Osman is an 83-year-old patient in the rehabilitation unit with bilateral thickened pachymeninges, atrial fibrillation, decreased mobility, decreased physical functioning which is very much improved, hyponatremia where she takes sodium tablets, resolving subdural hematoma, urinary trac t infection, chronic urinary catheter, malnutrition, and anemia. Plan: 1.Continue with physical, occupational, and speech therapy for 3.5 hours, 5 of 7 days. 2.Continue all of her supplements and medications unchanged. 3.She will be discharged home in the morning and will have outpatient physical therapy. Comorbidities That Are Impacting Her Rehabilitation: She does have a chronic Esteves in place because of chronic urinary retention and will follow up with Urology. She is again ready for discharge home in the morning. JACKIE/JANETH Voice ID: [id number] Report ID: [id number]
[2024-02-01 09:58] VITALS: BP 140/66; TEMP 97.9
--- NOTE | 2024-02-01 20:10 | PN ---
Date of Progress Note: 02/01/2024 Time Of Service: 1:40 p.m. Subjective: Ms. Osman is ready to be discharged home. She is packing her clothes. Her daughter is in the room. She is in a great mood. She has no new complaints. Review of Systems: No fevers, chills, nausea, vomiting. No myalgias, arthralgias, rash, headache, weight change. Physical Examination: Vital Signs: Blood pressure 140/66, pulse 68, respiratory rate 16, temperature 97.9, oxygen saturati on 96%. Weight 125 pounds. Height 5 feet 7 inches. General: Ms. Osman is again sitting in a chair. She is in no acute distress. HEENT: She is normocephalic, atraumatic. Sclerae anicteric. Oropharynx pink and moist. Neck: Supple. Chest: Clear. Heart: Regular. Extremities: Show no clubbing, cyanosis, or edema noted. Laboratory Studies: She has no new laboratory studies. X-ray/imaging: No new x-rays or imaging. Medications: Medications have been reviewed and remained unchanged. Progress Made With Her Physical, Occupational, And Speech Therapy: Today with physical therapy, she was able to go up and down 25 steps with excellent tolerance. Ambulated 850 feet within functional l imits. She mobilized wheelchair 250 feet. She was able to go up and down 25 steps with bilateral jaffe ndrails and did car transfers without any issues. She met all long-term and short-term goals today. With her occupational therapy, she did excellent, independent with grooming, bathing, upper and lowe r body dressing, and donning and doffing of footwear. She did meet all of her short-term and long-te rm goals. Durable medical equipment needs were met. With speech therapy, she was very excellent, in dependent with comprehension, expression, intelligibility. She improved her SLUMS score from 24 to 2 6, her BIMS score from 12 to 15, and indicating she is functioning at a very mildly impaired cognitiv e level. Assessment: Ms. Osman is an 83-year-old patient in the rehabilitation unit with bilaterally thickene d pachymeninges, atrial fibrillation, decreased mobility, decreased functioning, was done very well. She has low blood pressures, which remain mitigated by adjusting her medication dosage adding sodium chloride tablets. She does have resolving subdural hematoma and urinary tract infection which have been readdressed. She has a chronic urinary catheter which will be addressed with her urologist afte r discharge. She has malnutrition and anemia which have improved significantly. Plan: 1.At this point, she is ready for discharge home and will have therapy continued on an outpatient ba sis. 2.All medications will be continued as noted and prescriptions were given to the patient and sent to pharmacy. Comorbidities That Are Impacting Rehabilitation: Currently, the chronic Esteves bag which is present i s not negatively impacting rehabilitation. She is doing very well with that and again we will have i t addressed that she is discharged today. JACKIE/JANETH Voice ID: [id number] Report ID: [id number]
== END 2024-02-01 15:00 | disposition home or self-care (01) | DRG 65 ==
LOC: 5TH 17:45
PROVIDERS: ADMIT Psychiatry & Neurology Neurology with Special Qualifications in Child Neurology; ATTEND Psychiatry & Neurology Neurology with Special Qualifications in Child Neurology
DX: I62.03 Nontraumatic chronic subdural hemorrhage (principal); E44.0 Moderate protein-calorie malnutrition; E87.1 Hypo-osmolality and hyponatremia; N39.0 Urinary tract infection, site not specified; Z68.1 Body mass index [BMI] 19.9 or less, adult; I48.91 Unspecified atrial fibrillation; R33.9 Retention of urine, unspecified; D64.9 Anemia, unspecified
CPT/HCPCS: 36415; 80048; 82040; 83735; 84134; 85025; 92523; 97110; 97112; 97116; 97129; 97161; 97165; 97530; 97542